=== PATIENT | male | born 1940 | race American Indian/Alaskan Native ===

== ENCOUNTER 2022-02-19 01:16 | Emergency (ER) | payer SELFPAY ==
[~2022-02-19 01:16] MED LIST: CALCIUM CHLORIDE 1,000 MG/10 ML SYRINGE IV ONE; EPINEPHrine 1 MG/10 ML SYRINGE ONE; SODIUM BICARB 8.4% 50 MEQ/50 ML SYRINGE IV ONE
--- NOTE | 2022-02-19 01:37 | Emergency Department Report ---
ED CPR HPI - General Stated Complaint: CARDIAC ARREST Time Seen by Provider: 02/19/22 01:36 Source: EMS, old records reviewed (none avaialble) Mode of arrival: Stretcher Limitations: Altered Mental Status, Physical Limitation - History of Present Illness Initial Comments: 81-year-old male with a past medical history of hypertension, diabetes, CAD with stent placement presents to the hospital via EMS in cardiopulmonary arrest. Patient just [place] the [place]. While driving with his son when he complained of not feeling well, had shortness of breath and then subsequently had seizure-like activity followed by unresponsiveness. Bystander CPR initiated by son. Patient was in PEA arrest upon EMS arrival. ACLS protocol initiated. Patient was intubated with an ET tube, received epi x3, 1 calcium, 1 bicarb, and had Accu-Chek of 128. Patient's rhythm deteriorated to asystole at time of ED arrival. Patient was accidently extubated EMS during transport out of ambulance. Bag valve mask oxygenation subsequently provided. Resuscitation efforts ongoing 30 to 35 minutes prior to ED arrival - Related Data Allergies Allergy/AdvReac Type Severity Reaction Status Date / Time Unable to Assess Allergy Unverified 02/19/22 01:39 ED Review of Systems ROS: Stated complaint: CARDIAC ARREST Other details as noted in HPI Comment: Unobtainable due to pts medical conditions ED Physical Exam - Other Other exam information: General: Unresponsive Head: Atraumatic Eyes: Pupils fixed unresponsive ENT: Moist mucous membranes Neck: Normal appearance Chest: Apneic CV: Pulseless Abdomen: Soft, nondistended Back: Normal inspection Extremity: Normal inspection Neuro: GCS equals 3 Skin: Warm - Intubation Time Out Performed: Yes Laryngoscope: fiberoptic video scope Size: 4 Assist Device Used: fiberoptic device ET Tube Size: 8 Tube Secured Depth (cm): 25 Tube Secured Location: lips Tube Placement Confirmation: visualized tube passing t, equal breath sounds bilat, no breath sounds over epi, confirmation by capnometr Patient Tolerated Procedure: well Intubation Complications: none ED Medical Decision Making - Medical Decision Making 81-year-old male presents to the hospital cardiopulmonary arrest. Patient has been pulseless for 30 to 35 minutes prior to arrival despite resuscitation efforts. ACLS protocol continued upon arrival. Patient was intubated,, right IO placed, and patient received additional doses of epinephrine (4), sodium bicarb, and calcium. Rhythm fluctuated between PEA and finally V. fib before deteriorating to asystole despite resuscitation efforts (including 2 defibrillation's at 200 J) time into 1:33 AM son in ED informed of pt's . Critical Care Time: Yes Critical care time in (mins) excluding proc time.: 15 Critical care attestation.: If time is entered above; I have spent that time in minutes in the direct care of this critically ill patient, excluding procedure time. Critical Care Time: 15 Minutes of critical care time excluding procedures were used in the care of the patient. I came immediately to the bedside upon patient's arrival. I obtained history from EMS at the bedside. I discussed treatment plan with the nursing team members. Patient required continuous bedside care during resuscitation efforts. ED Disposition Clinical Impression: Cardiopulmonary arrest Disposition: 20 Is pt being admited?: No Condition: Stable Time of Disposition: 01:56
== END 2022-02-19 07:00 ==
LOC: ED 01:16
DX: I46.9 Cardiac arrest, cause unspecified (principal)
CPT/HCPCS: 31500; 92950; 99285; J0171; J3490